=== PATIENT | male | born 1925 | race Caucasian/White ===

== ENCOUNTER 2016-11-14 10:33 | Emergency (ER) | payer OTHER, BC ==
[~2016-11-14] VITALS: Ht 180.3 cm; Wt 82.2 kg
[~2016-11-14 10:33] MED LIST: ARTHROTEC 501 TABLET PO; ASPIRIN81 M2 PO; CARDIZEM LA360 MG PO; Cardizem CD,Cartia X PO; EXELON PATCH4.6 MG TD; EXELON PATCH9.5 MG TD; FLOMAX0.4 MG PO; Feosol PO; Flomax PO; HALCION0.25 MG PO; MATZIM LA360 MG PO; MYRBETRIQ50 MG PO; TRAMADOL HCL50 MG PO; TYLENOL ARTHRI650 M2 PO; Tylenol Arthritis Ex PO
[2016-11-14 12:42] LABS: BASOPHIL COUNT 0.1 K/uL (0-0.1); EOSINOPHIL (%) 5.1 % (0-5); EOSINOPHIL COUNT 0.4 K/uL (0-0.3); IMMATURE GRANULOCYTE (%) 0.4 % (0.0-0.7); LYMPHOCYTE COUNT 1.8 K/uL (1.0-2.8); MCH 27.8 PG (29.0-34.0); MCHC 31.4 G/DL (30.0-36.0); MCV 88.4 FL (86-99); MEAN PLAT.VOLUME 10.1 uM^3 (9.0-12.4); MONOCYTE (%) 14.1 % (3-12); NEUTROPHIL (%) 55.1 % (45-76); PLATELET COUNT 269 K/uL (156-360); RBC DIS.WIDTH-CV 13.4 % (11.8-14.6); RBC DIS.WIDTH-SD 43.6 % (39-53); RED BLOOD COUNT 4.75 M/uL (4.00-5.50); WHITE BLOOD COUNT 7.2 K/uL (4.1-10.2)
[2016-11-14 12:47] LABS: PROTHROMBIN TIME 11.3 SEC (10.2-12.9)
[2016-11-14 12:50] LABS: PTT 31.2 SEC (25-37)
[2016-11-14 12:54] LABS: CHLORIDE 105 mEq/L (99-109); POTASSIUM 4.4 mEq/L (3.7-5.4); SODIUM 142 mEq/L (136-147)
[2016-11-14 12:56] LABS: GLUCOSE 82 mg/dL (70-99)
[2016-11-14 12:57] LABS: ANION GAP 9 MEQ/L (2-14)
[2016-11-14 13:00] LABS: GFR ESTIMATE (CALCULATED) > 59 mL/min/; UREA NITROGEN (BUN) 16 mg/dL (9-23)
[2016-11-14 15:05] VITALS: BP 150/83
== END 2016-11-14 16:10 | disposition home or self-care (01) ==
LOC: EME 10:33
PROVIDERS: Emergency Medicine
PROC: 2W3QX1Z Immobilization of Right Lower Leg using Splint (ICD-10-PCS; principal; 2016-11-14)
DX: S82.841A Displaced bimalleolar fracture of right lower leg, initial encounter for closed fracture (principal); S82.831A Other fracture of upper and lower end of right fibula, initial encounter for closed fracture; M25.551 Pain in right hip; Y92.199 Unspecified place in other specified residential institution as the place of occurrence of the external cause; W19.XXXA Unspecified fall, initial encounter; R29.6 Repeated falls; F03.90 Unspecified dementia, unspecified severity, without behavioral disturbance, psychotic disturbance, mood disturbance, and anxiety; I10 Essential (primary) hypertension; Z79.82 Long term (current) use of aspirin
CPT/HCPCS: 70450; 73502; 73610; 80048; 85025; 85610; 85730; 93971; 99281; 99285